=== PATIENT | female | born 1930 | race Caucasian/White ===

== ENCOUNTER 2017-03-29 17:35 | Inpatient (IN) | payer MEDICAID ==
[~2017-03-29] VITALS: Ht 149.9 cm; Wt 66.0 kg
[2017-03-29 21:12] LABS: BASOPHIL % 0.5 % (0-2); PLATELET COUNT 346 x10^3mcL (130-400); RED CELL DISTRIBUTION WIDTH 13.9 % (11.5-14.5)
[2017-03-29 21:18] LABS: CALCIUM 9.2 mg/dL (8.5-10.1); CARBON DIOXIDE 26.6 mmol/L (21-32); CHLORIDE SERUM 101 mmol/L (98-107); CREATININE SERUM 0.8 mg/dL (0.6-1.0); GLUCOSE SERUM 130 mg/dL (74-106); POTASSIUM SERUM 3.4 mmol/L (3.5-5.1); SODIUM SERUM 139 mmol/L (136-145)
[2017-03-29 21:22] LABS: ALBUMIN 3.5 g/dL (3.4-5.0); ALKALINE PHOSPHATASE 55 U/L (46-116); ALT/SGPT 20 U/L (14-59); AMYLASE 42 U/L (25-115); AST/SGOT 18 U/L (15-37); BILIRUBIN TOTAL 0.5 mg/dL (0.20-1.00); LIPASE 193 IU/L (73-393); TOTAL PROTEIN, SERUM 7.5 g/dL (6.4-8.2)
[2017-03-29 22:51] LABS: microscopic required? YES; urine erythrocyte NEGATIVE (NEGATIVE)
[2017-03-30 00:56] VITALS: BP 147/66
[2017-03-30 03:10] LABS: T3 TOTAL 1.19 ng/mL
[2017-03-30 03:16] LABS: CHOLESTEROL/HDL RATIO 2.4; FREE T4 1.2 ng/dL (0.76-1.46); FREE THYROXINE INDEX 4.1 ug/dL (1.4-4.5); T4(THYROXINE) 10.5 ug/dL (4.7-13.3)
[2017-03-30 05:57] VITALS: BP 117/51
[2017-03-30 08:08] LABS: BASOPHIL % 1.1 % (0-2); PLATELET COUNT 354 x10^3mcL (130-400)
[2017-03-30 08:31] LABS: CALCIUM 8.8 mg/dL (8.5-10.1); CARBON DIOXIDE 26.1 mmol/L (21-32); CHLORIDE SERUM 107 mmol/L (98-107); CREATININE SERUM 0.7 mg/dL (0.6-1.0); GLUCOSE SERUM 135 mg/dL (74-106); MAGNESIUM 1.9 mg/dL (1.8-2.4); PHOSPHOROUS 3.2 mg/dL (2.5-4.9); POTASSIUM SERUM 3.5 mmol/L (3.5-5.1); SODIUM SERUM 142 mmol/L (136-145)
[2017-03-30 09:58] VITALS: BP 157/80
[2017-03-30 14:00] VITALS: BP 121/50
[2017-03-30 17:40] VITALS: BP 125/60
[2017-03-30 22:34] VITALS: BP 127/62
[2017-03-31 06:52] VITALS: BP 118/60
[2017-03-31 06:58] LABS: BASOPHIL % 1.1 % (0-2); PLATELET COUNT 315 x10^3mcL (130-400); RED CELL DISTRIBUTION WIDTH 13.9 % (11.5-14.5)
[2017-03-31 07:05] LABS: CALCIUM 8.4 mg/dL (8.5-10.1); CARBON DIOXIDE 24.4 mmol/L (21-32); CHLORIDE SERUM 106 mmol/L (98-107); CREATININE SERUM 0.6 mg/dL (0.6-1.0); GLUCOSE SERUM 92 mg/dL (74-106); MAGNESIUM 1.9 mg/dL (1.8-2.4); POTASSIUM SERUM 3.1 mmol/L (3.5-5.1); SODIUM SERUM 140 mmol/L (136-145)
[2017-03-31 07:50] VITALS: BP 138/65
[2017-03-31 09:47] VITALS: BP 137/57
[2017-03-31 12:35] VITALS: BP 132/74
[2017-03-31 14:24] LABS: BILIRUBIN DIRECT 0.09 mg/dL (0.0-0.2); BILIRUBIN TOTAL 0.3 mg/dL (0.20-1.00)
[2017-03-31 14:31] LABS: ALBUMIN 3.1 g/dL (3.4-5.0); TOTAL PROTEIN, SERUM 6.1 g/dL (6.4-8.2)
[2017-03-31 17:19] VITALS: BP 133/56
[2017-03-31 21:02] VITALS: BP 109/67
[2017-04-01 05:23] VITALS: BP 131/56
[2017-04-01 06:08] LABS: BASOPHIL % 0.8 % (0-2); PLATELET COUNT 311 x10^3mcL (130-400); RED CELL DISTRIBUTION WIDTH 13.9 % (11.5-14.5)
[2017-04-01 06:22] LABS: CALCIUM 8.2 mg/dL (8.5-10.1); CARBON DIOXIDE 23.3 mmol/L (21-32); CHLORIDE SERUM 106 mmol/L (98-107); CREATININE SERUM 0.6 mg/dL (0.6-1.0); GLUCOSE SERUM 93 mg/dL (74-106); LIPASE 128 IU/L (73-393); MAGNESIUM 1.8 mg/dL (1.8-2.4); PHOSPHOROUS 2.8 mg/dL (2.5-4.9); POTASSIUM SERUM 3.7 mmol/L (3.5-5.1); SODIUM SERUM 140 mmol/L (136-145)
[2017-04-01 09:13] VITALS: BP 121/77
[2017-04-01 17:31] VITALS: BP 168/79
[2017-04-01 21:06] VITALS: BP 131/60
[2017-04-02 05:00] VITALS: BP 145/55
[2017-04-02 06:17] LABS: BASOPHIL % 0.6 % (0-2); PLATELET COUNT 323 x10^3mcL (130-400); RED CELL DISTRIBUTION WIDTH 13.5 % (11.5-14.5)
[2017-04-02 06:27] LABS: ALKALINE PHOSPHATASE 53 U/L (46-116); ALT/SGPT 18 U/L (14-59); AST/SGOT 22 U/L (15-37); BILIRUBIN TOTAL 0.4 mg/dL (0.20-1.00); CALCIUM 8.5 mg/dL (8.5-10.1); CARBON DIOXIDE 25.8 mmol/L (21-32); CHLORIDE SERUM 103 mmol/L (98-107); CREATININE SERUM 0.6 mg/dL (0.6-1.0); GLUCOSE SERUM 96 mg/dL (74-106); MAGNESIUM 1.7 mg/dL (1.8-2.4); PHOSPHOROUS 3.3 mg/dL (2.5-4.9); POTASSIUM SERUM 3.1 mmol/L (3.5-5.1); SODIUM SERUM 139 mmol/L (136-145); TOTAL PROTEIN, SERUM 6.8 g/dL (6.4-8.2)
[2017-04-02 09:11] VITALS: BP 139/53
[2017-04-02 17:09] VITALS: BP 127/42
[2017-04-02 21:41] VITALS: BP 114/60
[2017-04-03 06:02] VITALS: BP 133/60
[2017-04-03 06:40] LABS: CALCIUM 8.3 mg/dL (8.5-10.1); CARBON DIOXIDE 24.1 mmol/L (21-32); CHLORIDE SERUM 105 mmol/L (98-107); CREATININE SERUM 0.5 mg/dL (0.6-1.0); GLUCOSE SERUM 102 mg/dL (74-106); POTASSIUM SERUM 3.1 mmol/L (3.5-5.1); SODIUM SERUM 139 mmol/L (136-145)
[2017-04-03 09:10] VITALS: BP 125/48
[2017-04-03 13:00] VITALS: BP 128/70
[2017-04-03 21:01] VITALS: BP 140/59
[2017-04-04 05:22] VITALS: BP 140/60
[2017-04-04 07:26] LABS: BASOPHIL % 0.6 % (0-2); PLATELET COUNT 293 x10^3mcL (130-400); RED CELL DISTRIBUTION WIDTH 13.7 % (11.5-14.5)
[2017-04-04 07:41] LABS: CALCIUM 8.5 mg/dL (8.5-10.1); CARBON DIOXIDE 23.1 mmol/L (21-32); CHLORIDE SERUM 106 mmol/L (98-107); CREATININE SERUM 0.6 mg/dL (0.6-1.0); GLUCOSE SERUM 104 mg/dL (74-106); MAGNESIUM 1.9 mg/dL (1.8-2.4); POTASSIUM SERUM 3.7 mmol/L (3.5-5.1); SODIUM SERUM 139 mmol/L (136-145)
[2017-04-04 17:19] VITALS: BP 141/63
[2017-04-04 21:58] VITALS: BP 113/43
[2017-04-05 05:29] VITALS: BP 128/47
[2017-04-05 06:29] LABS: BASOPHIL % 0.3 % (0-2); PLATELET COUNT 276 x10^3mcL (130-400); RED CELL DISTRIBUTION WIDTH 13.7 % (11.5-14.5)
[2017-04-05 06:34] LABS: ALKALINE PHOSPHATASE 111 U/L (46-116); ALT/SGPT 44 U/L (14-59); AST/SGOT 51 U/L (15-37); BILIRUBIN DIRECT 0.17 mg/dL (0.0-0.2); BILIRUBIN TOTAL 0.5 mg/dL (0.20-1.00); CALCIUM 8.6 mg/dL (8.5-10.1); CARBON DIOXIDE 25.5 mmol/L (21-32); CHLORIDE SERUM 104 mmol/L (98-107); CREATININE SERUM 0.6 mg/dL (0.6-1.0); GLUCOSE SERUM 117 mg/dL (74-106); POTASSIUM SERUM 3.9 mmol/L (3.5-5.1); SODIUM SERUM 138 mmol/L (136-145); TOTAL PROTEIN, SERUM 6.3 g/dL (6.4-8.2)
[2017-04-05 06:35] LABS: ALBUMIN 2.7 g/dL (3.4-5.0)
[2017-04-05 12:26] VITALS: BP 168/64
[2017-04-05 16:22] VITALS: BP 164/70
[2017-04-05 21:21] VITALS: BP 148/50
[2017-04-06 05:46] VITALS: BP 133/61
[2017-04-06 06:17] LABS: BASOPHIL % 0.4 % (0-2); PLATELET COUNT 293 x10^3mcL (130-400); RED CELL DISTRIBUTION WIDTH 13.9 % (11.5-14.5)
[2017-04-06 06:37] LABS: ALKALINE PHOSPHATASE 106 U/L (46-116); ALT/SGPT 39 U/L (14-59); AST/SGOT 42 U/L (15-37); BILIRUBIN DIRECT 0.16 mg/dL (0.0-0.2); BILIRUBIN TOTAL 0.54 mg/dL (0.20-1.00); CALCIUM 8.7 mg/dL (8.5-10.1); CARBON DIOXIDE 28.8 mmol/L (21-32); CHLORIDE SERUM 98 mmol/L (98-107); CREATININE SERUM 0.5 mg/dL (0.6-1.0); GLUCOSE SERUM 105 mg/dL (74-106); SODIUM SERUM 132 mmol/L (136-145); TOTAL PROTEIN, SERUM 6.7 g/dL (6.4-8.2)
[2017-04-06 06:50] LABS: POTASSIUM SERUM 2.7 mmol/L (3.5-5.1)
[2017-04-06 09:00] VITALS: BP 132/60; BP 157/70
[2017-04-06 12:07] VITALS: BP 135/62
[2017-04-06] MEDS ORDERED: APR50 PO (15:05)
[2017-04-06] MEDS ORDERED: DIO160 PO (15:05)
[2017-04-06] MEDS ORDERED: COR20 PO (15:05)
[2017-04-06] MEDS ORDERED: NEU100 PO (15:06)
[2017-04-06] MEDS ORDERED: PRI20 PO (15:08)
[2017-04-06] MEDS ORDERED: OMEPRAZOLE20 M4 PO (15:09)
[2017-04-06] MEDS ORDERED: BIA500 PO (15:10)
[2017-04-06] MEDS ORDERED: AMO500 PO (15:10)
[2017-04-06] MEDS ORDERED: NORCO1 TA2 PO (15:11)
[2017-04-06] MEDS ORDERED: COLACE100 MG PO (15:12)
[2017-04-06 15:21] VITALS: BP 135/62
[2017-04-06 16:15] VITALS: BP 116/68
== END 2017-04-06 18:44 | disposition home or self-care (01) | DRG 263 ==
LOC: ED 17:35 → DU 23:07 → MU 23:07 → DU 03-30 00:45 → MU 03-30 22:14
PROVIDERS: Emergency Medicine; Family Medicine; Internal Medicine Gastroenterology; Surgery; ADMIT Family Medicine
PROC: 0DB68ZX Excision of Stomach, Via Natural or Artificial Opening Endoscopic, Diagnostic (ICD-10-PCS; 2017-03-31 10:00)
PROC: 0DJD8ZZ Inspection of Lower Intestinal Tract, Via Natural or Artificial Opening Endoscopic (ICD-10-PCS; 2017-03-31 10:00)
PROC: 0FT44ZZ Resection of Gallbladder, Percutaneous Endoscopic Approach (ICD-10-PCS; principal; 2017-04-04 09:00)
PROC: 0F798DZ Dilation of Common Bile Duct with Intraluminal Device, Via Natural or Artificial Opening Endoscopic (ICD-10-PCS; 2017-04-05 09:00)
DX: K80.51 Calculus of bile duct without cholangitis or cholecystitis with obstruction (principal); N17.0 Acute kidney failure with tubular necrosis; E43 Unspecified severe protein-calorie malnutrition; A04.8 Other specified bacterial intestinal infections; I42.9 Cardiomyopathy, unspecified; K86.1 Other chronic pancreatitis; E87.1 Hypo-osmolality and hyponatremia; K76.0 Fatty (change of) liver, not elsewhere classified; K86.81 Exocrine pancreatic insufficiency; N39.0 Urinary tract infection, site not specified; K29.70 Gastritis, unspecified, without bleeding; I16.0 Hypertensive urgency; E87.6 Hypokalemia; E83.42 Hypomagnesemia; G25.0 Essential tremor; J44.9 Chronic obstructive pulmonary disease, unspecified; K59.00 Constipation, unspecified; F41.9 Anxiety disorder, unspecified; F43.0 Acute stress reaction; M85.89 Other specified disorders of bone density and structure, multiple sites; D64.9 Anemia, unspecified; Z68.29 Body mass index [BMI] 29.0-29.9, adult
CPT/HCPCS: 43235; 43262; 45378; 83880; 84439; 97110-GP; 97116-GP; 97530-GP; C1769; C1887; C2625; C9113; J0690; J0696; J1170; J1200; J1610; J2250; J2270; J2310; J2405; J2765; J3010; J3480; J3490; J7030; J8597; Q0092; Q9967

== ENCOUNTER 2017-04-11 21:02 | Emergency (ER) | payer MEDICAID ==
[~2017-04-11 21:02] MED LIST: AMO500 PO; APR50 PO; BIA500 PO; COLACE100 MG PO; COR20 PO; DIO160 PO; NEU100 PO; NORCO1 TA2 PO; OMEPRAZOLE20 M4 PO; PRI20 PO
[2017-04-11 21:56] LABS: BASOPHIL % 0.9 % (0-2); PLATELET COUNT 360 x10^3mcL (130-400); RED CELL DISTRIBUTION WIDTH 13.9 % (11.5-14.5)
[2017-04-11 22:07] LABS: CALCIUM 8.9 mg/dL (8.5-10.1); CARBON DIOXIDE 27.1 mmol/L (21-32); CHLORIDE SERUM 102 mmol/L (98-107); CREATININE SERUM 0.5 mg/dL (0.6-1.0); GLUCOSE SERUM 103 mg/dL (74-106); POTASSIUM SERUM 3.2 mmol/L (3.5-5.1); SODIUM SERUM 141 mmol/L (136-145)
[2017-04-11 22:12] LABS: ALKALINE PHOSPHATASE 74 U/L (46-116); ALT/SGPT 18 U/L (14-59); AMYLASE 42 U/L (25-115); AST/SGOT 20 U/L (15-37); BILIRUBIN TOTAL 0.3 mg/dL (0.20-1.00); LIPASE 192 IU/L (73-393); MAGNESIUM 2.1 mg/dL (1.8-2.4)
[2017-04-11 22:13] LABS: ALBUMIN 2.9 g/dL (3.4-5.0)
[2017-04-12 00:36] VITALS: BP 130/59
[2017-04-13] MEDS ORDERED: LANSOPRAZOLE30 M2 PO (18:47)
[2017-04-13] MEDS ORDERED: NOR10 PO (18:48)
== END 2017-04-12 00:36 | disposition home or self-care (01) ==
LOC: ED 21:02
PROVIDERS: Emergency Medicine
DX: K29.70 Gastritis, unspecified, without bleeding (principal); M54.9 Dorsalgia, unspecified; I10 Essential (primary) hypertension; Z79.2 Long term (current) use of antibiotics; Z79.82 Long term (current) use of aspirin; Z79.899 Other long term (current) drug therapy; Z90.49 Acquired absence of other specified parts of digestive tract
CPT/HCPCS: J2270; J2405; J7030

== ENCOUNTER 2017-04-13 17:24 | Inpatient (IN) | payer MEDICAID ==
[~2017-04-13] VITALS: Ht 152.4 cm; Wt 68.0 kg
--- NOTE | 2017-04-13 17:30 | NUR ---
PT W/C TO ED BED 5, PT IN ED WITH C/O DIFFUSE ABD PAIN, [place] [facility] [place] SEEN ON TUESDAY FOR ABD PAIN AND D/C HOME, PT HAS SHANNEN IN PLACE IN 4 DIFFERENT INCISION SITES TO ABDOMEN, ABDOMEN IS SOFT, ACTIVE BOWEL SOUNDS ON AUSCULTATION, DR. IVORY PERFORMED MSE
--- NOTE | 2017-04-13 17:59 | NUR ---
MSE COMPLETED BY DR GUERRERO
--- NOTE | 2017-04-13 18:15 | NUR ---
ASSISTED PT ONTO BEDSIDE COMMODE, PT THEN CLEANED AND HELPED BACK IN BED.
--- NOTE | 2017-04-13 18:24 | NUR ---
PT OFF UNIT VIA WC TO XRAY.
[2017-04-13 18:25] LABS: BASOPHIL % 0.7 % (0-2); PLATELET COUNT 363 x10^3mcL (130-400); RED CELL DISTRIBUTION WIDTH 13.6 % (11.5-14.5)
[2017-04-13 18:35] LABS: CALCIUM 8.4 mg/dL (8.5-10.1); CARBON DIOXIDE 29.6 mmol/L (21-32); CHLORIDE SERUM 103 mmol/L (98-107); CREATININE SERUM 0.6 mg/dL (0.6-1.0); GLUCOSE SERUM 104 mg/dL (74-106); POTASSIUM SERUM 3.5 mmol/L (3.5-5.1); SODIUM SERUM 138 mmol/L (136-145)
[2017-04-13 18:35] LABS: microscopic required? YES; urine erythrocyte NEGATIVE (NEGATIVE)
[2017-04-13 18:39] LABS: ALKALINE PHOSPHATASE 69 U/L (46-116); ALT/SGPT 18 U/L (14-59); AST/SGOT 17 U/L (15-37); CHOLESTEROL 157 mg/dL (<200); HDL CHOLESTEROL 53 mg/dL (40-60); LIPASE 210 IU/L (73-393); TOTAL PROTEIN, SERUM 6.6 g/dL (6.4-8.2); TRIGLYCERIDES 77 mg/dL (<150)
[2017-04-13 18:40] LABS: ALBUMIN 2.8 g/dL (3.4-5.0)
[2017-04-13] MEDS ORDERED: LANSOPRAZOLE30 M2 PO (18:47)
[2017-04-13] MEDS ORDERED: NOR10 PO (18:48)
[2017-04-13 19:03] LABS: FREE T4 1.3 ng/dL (0.76-1.46); FREE THYROXINE INDEX 3.7 ug/dL (1.4-4.5)
--- NOTE | 2017-04-13 19:11 | NUR ---
REPORT GIVEN TO BRITTANI Hawkins TO ASSUME CARE OF PT.
--- NOTE | 2017-04-13 19:35 | NUR ---
PT MEDICATED PER ORER. PLEASE SEE EMAR.
[2017-04-13 19:39] LABS: T3 TOTAL 1.18 ng/mL
--- NOTE | 2017-04-13 19:46 | NUR ---
MRSA SWAB OBTAINED AND SENT TO LAB
--- NOTE | 2017-04-13 20:09 | NUR ---
REPORT CALLED TO KRISTINA MERCEDES TO ASSUME CARE OF PT ON TELE.
--- NOTE | 2017-04-13 20:21 | NUR ---
PT TRANSFERRED TO TELE
[2017-04-13 20:36] VITALS: BP 130/62
--- NOTE | 2017-04-13 20:44 | NUR ---
REC'D AOX4, SPEECH CLEAR. DAUGHTER AT THE BEDSIDE. ON RA, NO SOB NOTED. ATTACHED TELE 12. IV SITE WNL. C/O LUNDBERG AND ABD PAIN. NOTED 4X SHANNEN TO ABD, CDI. ORIENTED TO ROOM AND SURROUNDINGS. CALL LIGHT WITHIN REACH, PROVIDED REPORT TO KRISTINA MERCEDES FOR CONTINUITY OF CARE.
--- NOTE | 2017-04-14 05:13 | NUR ---
PT SLEPT COMFORTABLY THROUGH OUT THE NIGHT. WAS IN NO ACUTE DISTRESS OR DISCOMFORT. SAFETY MEASURES WERE ENSURED. CALL LIGHT WITHIN REACH.
[2017-04-14 05:54] VITALS: BP 101/45
[2017-04-14 05:58] LABS: BASOPHIL % 0.9 % (0-2); PLATELET COUNT 334 x10^3mcL (130-400); RED CELL DISTRIBUTION WIDTH 13.9 % (11.5-14.5)
[2017-04-14 06:11] LABS: CALCIUM 8.1 mg/dL (8.5-10.1); CARBON DIOXIDE 25.4 mmol/L (21-32); CHLORIDE SERUM 107 mmol/L (98-107); CREATININE SERUM 0.6 mg/dL (0.6-1.0); GLUCOSE SERUM 97 mg/dL (74-106); MAGNESIUM 2.2 mg/dL (1.8-2.4); PHOSPHOROUS 3.6 mg/dL (2.5-4.9); POTASSIUM SERUM 3.6 mmol/L (3.5-5.1); SODIUM SERUM 141 mmol/L (136-145)
--- NOTE | 2017-04-14 07:10 | NUR ---
PT IN BED. AWAKE. ABLE TO LET NEEDS KNOWN. ON 2LNC EFFORTLESS BREATHING. IV INFUSING WELL TO RIGHT WRIST #20 NS AT 50ML/HR. BED IN LOWEST POSITION, CALL LIGHT WITHIN REACH.
[2017-04-14 10:42] VITALS: BP 116/52
--- NOTE | 2017-04-14 11:32 | NUR ---
US ABDOMEN DONE. DIET ORDERED. PT EATING NOW. PT STATES FEELING MUCH BETTER AFTER INGESTION OF FOOD. NO ABDOMINAL DISCOMFORT REPORTED. WILL CONTINUE TO MONITOR.
--- NOTE | 2017-04-14 12:55 | NUR ---
PASSED NOON MEDS, PT TOLERATED WELL. CALL LIGHT WITHIN REACH. PT VOICING WISHES TO EAT. STATES HUNGER.
[2017-04-14 13:49] VITALS: BP 112/62
[2017-04-14] MEDS ORDERED: NITROFURANTOIN100 MG PO (16:23)
[2017-04-14 16:42] VITALS: BP 117/51
--- NOTE | 2017-04-14 18:55 | NUR ---
DISCHARGE INSTRUCTIONS GIVEN TO PT AND DAUGHTER. BOTH VERBALIZED UNDERSTANDING FOR FOLLOW UP APPOINTMENTS. IV DC'D PT TOLERATED WELL, CATHETER INTACT, NO PHLEBITIS. TELE BOX REMOVED. PT TRANSPORTED SAFELY OUT OF UNIT VIA WHEELCHAIR.
--- NOTE | 2017-04-14 19:15 | NUR ---
PRESCRIPTION WAS LEFT BEHIND, CALL DRUM SEALER DAUGHTER CHAO HINOJOSA. LEFT VOICEMAIL. PRESCRIPTION AT NURSES STATION.
--- NOTE | 2017-04-14 19:29 | NUR ---
SPOKE TO DAUGHTER (CHAO). DAUGHTER TO TRAFFIC CONTROLLER CABLE PRESCRIPTIONS FROM NURSES STATION.
== END 2017-04-14 19:05 | disposition home or self-care (01) | DRG 241 ==
LOC: ED 17:24 → DU 19:41
PROVIDERS: Family Medicine; Specialist; ADMIT Family Medicine
DX: K29.00 Acute gastritis without bleeding (principal); E43 Unspecified severe protein-calorie malnutrition; A04.8 Other specified bacterial intestinal infections; I42.0 Dilated cardiomyopathy; K76.0 Fatty (change of) liver, not elsewhere classified; K86.1 Other chronic pancreatitis; N39.0 Urinary tract infection, site not specified; J44.9 Chronic obstructive pulmonary disease, unspecified; G25.0 Essential tremor; M85.89 Other specified disorders of bone density and structure, multiple sites; E01.0 Iodine-deficiency related diffuse (endemic) goiter; I10 Essential (primary) hypertension; K86.81 Exocrine pancreatic insufficiency; Z68.29 Body mass index [BMI] 29.0-29.9, adult
CPT/HCPCS: 36600; 83880; 84439; 94150; C9113; J0696; J1885; J2405; J3010; J7030; Q0092

== ENCOUNTER 2017-05-02 16:15 | Emergency (ER) | payer MEDICAID ==
[~2017-05-02 16:15] MED LIST changes: +LANSOPRAZOLE30 M2 PO; +NITROFURANTOIN100 MG PO; +NOR10 PO
[2017-05-02 18:27] LABS: BASOPHIL % 0.6 % (0-2); PLATELET COUNT 321 x10^3mcL (130-400); RED CELL DISTRIBUTION WIDTH 13.7 % (11.5-14.5)
[2017-05-02 18:31] LABS: CALCIUM 8.8 mg/dL (8.5-10.1); CARBON DIOXIDE 24.1 mmol/L (21-32); CHLORIDE SERUM 103 mmol/L (98-107); CREATININE SERUM 0.6 mg/dL (0.6-1.0); GLUCOSE SERUM 104 mg/dL (74-106); POTASSIUM SERUM 3.6 mmol/L (3.5-5.1); SODIUM SERUM 138 mmol/L (136-145)
[2017-05-02 18:36] LABS: ALKALINE PHOSPHATASE 64 U/L (46-116); ALT/SGPT 18 U/L (14-59); AMYLASE 40 U/L (25-115); AST/SGOT 19 U/L (15-37); BILIRUBIN TOTAL 0.25 mg/dL (0.20-1.00); LIPASE 156 IU/L (73-393); TOTAL PROTEIN, SERUM 7.2 g/dL (6.4-8.2)
[2017-05-02 18:37] LABS: ALBUMIN 3.2 g/dL (3.4-5.0)
[2017-05-02 19:44] VITALS: BP 121/75
== END 2017-05-02 19:44 | disposition home or self-care (01) ==
LOC: ED 16:15
PROVIDERS: Emergency Medicine
DX: R10.13 Epigastric pain (principal); Z79.899 Other long term (current) drug therapy
CPT/HCPCS: 36415; 83880; J1885

== ENCOUNTER 2017-05-05 02:22 | Emergency (ER) | payer MEDICAID ==
[2017-05-05 03:05] LABS: BASOPHIL % 1.3 % (0-2); PLATELET COUNT 331 x10^3mcL (130-400); RED CELL DISTRIBUTION WIDTH 12.6 % (11.5-14.5)
[2017-05-05 03:25] LABS: CALCIUM 9.1 mg/dL (8.5-10.1); CARBON DIOXIDE 23.3 mmol/L (21-32); CHLORIDE SERUM 103 mmol/L (98-107); CREATININE SERUM 0.7 mg/dL (0.6-1.0); GLUCOSE SERUM 131 mg/dL (74-106); POTASSIUM SERUM 3.5 mmol/L (3.5-5.1); SODIUM SERUM 141 mmol/L (136-145)
[2017-05-05 03:30] LABS: ALKALINE PHOSPHATASE 183 U/L (46-116); ALT/SGPT 123 U/L (14-59); AST/SGOT 263 U/L (15-37); BILIRUBIN TOTAL 0.72 mg/dL (0.20-1.00); LIPASE 143 IU/L (73-393); TOTAL PROTEIN, SERUM 7.3 g/dL (6.4-8.2)
[2017-05-05 04:05] LABS: ALBUMIN 3.2 g/dL (3.4-5.0)
[2017-05-05 06:10] VITALS: BP 131/57
== END 2017-05-05 06:10 | disposition home or self-care (01) ==
LOC: ED 02:22
PROVIDERS: Emergency Medicine
DX: R10.84 Generalized abdominal pain (principal); I10 Essential (primary) hypertension; R74.0 Nonspecific elevation of levels of transaminase and lactic acid dehydrogenase [LDH]
CPT/HCPCS: J2270; J2405; J7030; Q0092; Q9967

== ENCOUNTER 2017-05-10 16:15 | Emergency (ER) | payer MEDICAID ==
[~2017-05-10] VITALS: Ht 154.9 cm; Wt 61.9 kg
[2017-05-10 17:49] LABS: microscopic required? YES; urine erythrocyte NEGATIVE (NEGATIVE)
[2017-05-10 17:54] LABS: BASOPHIL % 0.5 % (0-2); PLATELET COUNT 341 x10^3mcL (130-400); RED CELL DISTRIBUTION WIDTH 13.5 % (11.5-14.5)
[2017-05-10 17:58] LABS: CARBON DIOXIDE 28.4 mmol/L (21-32); CHLORIDE SERUM 101 mmol/L (98-107); CREATININE SERUM 0.7 mg/dL (0.6-1.0); GLUCOSE SERUM 107 mg/dL (74-106); POTASSIUM SERUM 3.1 mmol/L (3.5-5.1); SODIUM SERUM 139 mmol/L (136-145)
[2017-05-10 18:02] LABS: ALKALINE PHOSPHATASE 214 U/L (46-116); ALT/SGPT 38 U/L (14-59); AMYLASE 28 U/L (25-115); AST/SGOT 27 U/L (15-37); BILIRUBIN TOTAL 0.3 mg/dL (0.20-1.00); HDL CHOLESTEROL 54 mg/dL (40-60); LIPASE 107 IU/L (73-393); TOTAL PROTEIN, SERUM 7.4 g/dL (6.4-8.2)
[2017-05-10 18:05] LABS: ALBUMIN 3.2 g/dL (3.4-5.0); CHOLESTEROL 204 mg/dL (<200)
[2017-05-10 19:35] VITALS: BP 123/70
== END 2017-05-10 18:45 | disposition home or self-care (01) ==
LOC: ED 16:15 → EDBD 16:15 → ED 18:45
PROVIDERS: Emergency Medicine
DX: K59.00 Constipation, unspecified (principal); R68.83 Chills (without fever); F41.9 Anxiety disorder, unspecified; I10 Essential (primary) hypertension; E87.6 Hypokalemia; E46 Unspecified protein-calorie malnutrition; Z90.49 Acquired absence of other specified parts of digestive tract
CPT/HCPCS: 83880; J1885; J2060; J7030

== ENCOUNTER 2017-05-12 20:48 | Inpatient (IN) | payer MEDICAID ==
[~2017-05-12] VITALS: Ht 152.4 cm; Wt 66.0 kg
[2017-05-12 22:16] LABS: BASOPHIL % 0.7 % (0-2); PLATELET COUNT 352 x10^3mcL (130-400); RED CELL DISTRIBUTION WIDTH 13.4 % (11.5-14.5)
[2017-05-12 22:29] LABS: CALCIUM 9.2 mg/dL (8.5-10.1); CARBON DIOXIDE 26.2 mmol/L (21-32); CHLORIDE SERUM 102 mmol/L (98-107); CREATININE SERUM 0.7 mg/dL (0.6-1.0); GLUCOSE SERUM 112 mg/dL (74-106); POTASSIUM SERUM 3.1 mmol/L (3.5-5.1); SODIUM SERUM 139 mmol/L (136-145)
[2017-05-12 22:33] LABS: ALKALINE PHOSPHATASE 170 U/L (46-116); ALT/SGPT 30 U/L (14-59); AST/SGOT 22 U/L (15-37); BILIRUBIN TOTAL 0.4 mg/dL (0.20-1.00); LIPASE 126 IU/L (73-393); TOTAL PROTEIN, SERUM 7.6 g/dL (6.4-8.2)
[2017-05-12 22:36] LABS: ALBUMIN 3.3 g/dL (3.4-5.0)
[2017-05-12 23:42] LABS: UA SPECIFIC GRAVITY 1.015 (1.005-1.035); microscopic required? YES; urine erythrocyte NEGATIVE (NEGATIVE)
[2017-05-13] VITALS (8 sets, daily range): BP systolic 106–143; BP diastolic 50–61; Ht 152.4 cm; Wt 66.0 kg
[2017-05-13] MEDS ORDERED: TRAMADOL HCL50 MG PO (00:07)
[2017-05-13] MEDS ORDERED: EVAC-U-GEN8.6 M1 PO (00:08)
[2017-05-13 01:37] LABS: CHOLESTEROL/HDL RATIO 3.3; MAGNESIUM 2.2 mg/dL (1.8-2.4); PHOSPHOROUS 3.4 mg/dL (2.5-4.9)
[2017-05-13 01:43] LABS: T3 TOTAL 1.16 ng/mL
[2017-05-13 01:51] LABS: FREE T4 1.63 ng/dL (0.76-1.46); FREE THYROXINE INDEX 4.3 ug/dL (1.4-4.5); T4(THYROXINE) 12.3 ug/dL (4.7-13.3)
[2017-05-13 06:13] LABS: CALCIUM 8.3 mg/dL (8.5-10.1); CARBON DIOXIDE 26.5 mmol/L (21-32); CHLORIDE SERUM 104 mmol/L (98-107); CREATININE SERUM 0.6 mg/dL (0.6-1.0); GLUCOSE SERUM 112 mg/dL (74-106); POTASSIUM SERUM 3.5 mmol/L (3.5-5.1); SODIUM SERUM 140 mmol/L (136-145)
[2017-05-14 06:07] VITALS: BP 129/63
[2017-05-14 10:19] VITALS: BP 117/52
[2017-05-14 12:12] VITALS: BP 108/48
[2017-05-14 13:14] VITALS: BP 131/65
[2017-05-14 17:02] VITALS: BP 141/66
[2017-05-14 20:05] VITALS: BP 140/62
[2017-05-15 05:33] VITALS: BP 140/71
[2017-05-15 06:13] LABS: BASOPHIL % 0.7 % (0-2); PLATELET COUNT 325 x10^3mcL (130-400); RED CELL DISTRIBUTION WIDTH 13.6 % (11.5-14.5)
[2017-05-15 07:10] LABS: CALCIUM 8.6 mg/dL (8.5-10.1); CARBON DIOXIDE 25.7 mmol/L (21-32); CHLORIDE SERUM 104 mmol/L (98-107); CREATININE SERUM 0.6 mg/dL (0.6-1.0); GLUCOSE SERUM 92 mg/dL (74-106); MAGNESIUM 2.1 mg/dL (1.8-2.4); PHOSPHOROUS 3.1 mg/dL (2.5-4.9); POTASSIUM SERUM 3.2 mmol/L (3.5-5.1); SODIUM SERUM 139 mmol/L (136-145)
[2017-05-15 08:44] VITALS: BP 134/60
[2017-05-15 10:15] VITALS: BP 134/60
[2017-05-15 15:42] VITALS: BP 142/66
[2017-05-15 17:44] VITALS: BP 144/69
[2017-05-15 20:42] VITALS: BP 135/54
[2017-05-16 05:58] VITALS: BP 146/72
[2017-05-16 07:05] LABS: BASOPHIL % 0.7 % (0-2); PLATELET COUNT 368 x10^3mcL (130-400); RED CELL DISTRIBUTION WIDTH 13.4 % (11.5-14.5)
[2017-05-16 07:48] LABS: CALCIUM 9.1 mg/dL (8.5-10.1); CARBON DIOXIDE 27.2 mmol/L (21-32); CHLORIDE SERUM 103 mmol/L (98-107); CREATININE SERUM 0.6 mg/dL (0.6-1.0); GLUCOSE SERUM 103 mg/dL (74-106); MAGNESIUM 2.1 mg/dL (1.8-2.4); PHOSPHOROUS 3.3 mg/dL (2.5-4.9); POTASSIUM SERUM 3.5 mmol/L (3.5-5.1); SODIUM SERUM 139 mmol/L (136-145)
[2017-05-16] MEDS ORDERED: LAC PO (09:01)
[2017-05-16] MEDS ORDERED: PROTONIX40 MG PO (09:01)
[2017-05-16] MEDS ORDERED: ULT50 PO (09:02)
[2017-05-16] MEDS ORDERED: COLACE100 MG PO (09:03)
[2017-05-16] MEDS ORDERED: NITROFURANTOIN100 MG PO (09:07)
[2017-05-16 09:36] VITALS: BP 110/60
[2017-05-16 09:38] VITALS: BP 110/60
[2017-05-16 14:30] VITALS: BP 147/72
[2017-05-16] MEDS ORDERED: MECLIZINE HCL12.5 MG PO (14:38)
== END 2017-05-16 16:34 | disposition home or self-care (01) | DRG 261 ==
LOC: ED 20:48 → EDBD 20:48 → DU 05-13 00:50
PROVIDERS: Emergency Medicine; Family Medicine; Internal Medicine Gastroenterology; ADMIT Family Medicine
PROC: 0FB Hepatobiliary System and Pancreas, Excision (ICD-10-PCS; principal; 2017-05-13 10:30)
PROC: 0FPB8DZ Removal of Intraluminal Device from Hepatobiliary Duct, Via Natural or Artificial Opening Endoscopic (ICD-10-PCS; 2017-05-13 10:30)
PROC: 0F798ZZ Dilation of Common Bile Duct, Via Natural or Artificial Opening Endoscopic (ICD-10-PCS; 2017-05-13 10:30)
PROC: 0FC98ZZ Extirpation of Matter from Common Bile Duct, Via Natural or Artificial Opening Endoscopic (ICD-10-PCS; 2017-05-13 10:30)
DX: K91.86 Retained cholelithiasis following cholecystectomy (principal); E44.0 Moderate protein-calorie malnutrition; I42.0 Dilated cardiomyopathy; K76.0 Fatty (change of) liver, not elsewhere classified; N39.0 Urinary tract infection, site not specified; E87.6 Hypokalemia; I10 Essential (primary) hypertension; G25.0 Essential tremor; E01.0 Iodine-deficiency related diffuse (endemic) goiter; J44.9 Chronic obstructive pulmonary disease, unspecified; M85.80 Other specified disorders of bone density and structure, unspecified site; Z68.28 Body mass index [BMI] 28.0-28.9, adult
CPT/HCPCS: 43260; 83880; 84439; C1769; C9113; J0696; J1610; J2175; J2250; J2270; J2405; J2704; J3010; J3480; J7030; J7120; J8597; Q0092; Q9967

== ENCOUNTER 2017-05-19 15:43 | Emergency (ER) | payer MEDICAID ==
[~2017-05-19] VITALS: Ht 152.4 cm; Wt 60.4 kg
[~2017-05-19 15:43] MED LIST changes: +EVAC-U-GEN8.6 M1 PO; +LAC PO; +MECLIZINE HCL12.5 MG PO; +PROTONIX40 MG PO; +TRAMADOL HCL50 MG PO; +ULT50 PO
[2017-05-19 18:13] LABS: BASOPHIL % 1.1 % (0-2); PLATELET COUNT 397 x10^3mcL (130-400); RED CELL DISTRIBUTION WIDTH 13.7 % (11.5-14.5)
[2017-05-19 18:19] LABS: CALCIUM 9.4 mg/dL (8.5-10.1); CARBON DIOXIDE 27.1 mmol/L (21-32); CHLORIDE SERUM 102 mmol/L (98-107); CREATININE SERUM 0.7 mg/dL (0.6-1.0); GLUCOSE SERUM 107 mg/dL (74-106); POTASSIUM SERUM 3.2 mmol/L (3.5-5.1); SODIUM SERUM 139 mmol/L (136-145)
[2017-05-19 18:24] LABS: ALBUMIN 3.6 g/dL (3.4-5.0); ALKALINE PHOSPHATASE 120 U/L (46-116); ALT/SGPT 25 U/L (14-59); AMYLASE 64 U/L (25-115); AST/SGOT 20 U/L (15-37); BILIRUBIN TOTAL 0.4 mg/dL (0.20-1.00); LIPASE 399 IU/L (73-393); TOTAL PROTEIN, SERUM 7.7 g/dL (6.4-8.2)
[2017-05-19 19:38] VITALS: BP 132/73
== END 2017-05-19 19:38 | disposition home or self-care (01) ==
LOC: ED 15:43
PROVIDERS: Emergency Medicine
DX: R10.9 Unspecified abdominal pain (principal)
CPT/HCPCS: 36415; 83880; J1885

== ENCOUNTER 2017-05-20 02:48 | Emergency (ER) | payer MEDICAID ==
[2017-05-20 03:52] LABS: BASOPHIL % 1.3 % (0-2); PLATELET COUNT 375 x10^3mcL (130-400); RED CELL DISTRIBUTION WIDTH 13.1 % (11.5-14.5)
[2017-05-20 03:53] LABS: CALCIUM 8.9 mg/dL (8.5-10.1); CARBON DIOXIDE 25.8 mmol/L (21-32); CHLORIDE SERUM 107 mmol/L (98-107); CREATININE SERUM 0.6 mg/dL (0.6-1.0); GLUCOSE SERUM 111 mg/dL (74-106); POTASSIUM SERUM 3.2 mmol/L (3.5-5.1); SODIUM SERUM 142 mmol/L (136-145)
[2017-05-20 03:53] LABS: UA SPECIFIC GRAVITY 1.015 (1.005-1.035); microscopic required? YES; urine erythrocyte NEGATIVE (NEGATIVE)
[2017-05-20 03:59] LABS: ALKALINE PHOSPHATASE 104 U/L (46-116); ALT/SGPT 24 U/L (14-59); AMYLASE 51 U/L (25-115); AST/SGOT 32 U/L (15-37); BILIRUBIN TOTAL 0.48 mg/dL (0.20-1.00); LIPASE 315 IU/L (73-393)
[2017-05-20 04:07] LABS: ALBUMIN 3.2 g/dL (3.4-5.0)
[2017-05-20 05:57] VITALS: BP 138/69
== END 2017-05-20 05:57 | disposition home or self-care (01) ==
LOC: ED 02:48
PROVIDERS: Emergency Medicine
DX: G89.29 Other chronic pain (principal); R10.11 Right upper quadrant pain; I10 Essential (primary) hypertension
CPT/HCPCS: 36415; J2270

== ENCOUNTER 2017-05-29 14:04 | Emergency (ER) | payer MEDICAID ==
[~2017-05-29] VITALS: Ht 152.4 cm; Wt 60.9 kg
[2017-05-29 16:45] LABS: CALCIUM 9.2 mg/dL (8.5-10.1); CARBON DIOXIDE 26.7 mmol/L (21-32); CHLORIDE SERUM 102 mmol/L (98-107); CREATININE SERUM 0.6 mg/dL (0.6-1.0); GLUCOSE SERUM 113 mg/dL (74-106); POTASSIUM SERUM 3.6 mmol/L (3.5-5.1); SODIUM SERUM 138 mmol/L (136-145)
[2017-05-29 16:48] LABS: BASOPHIL % 0.8 % (0-2); PLATELET COUNT 334 x10^3mcL (130-400)
[2017-05-29 16:53] LABS: ALKALINE PHOSPHATASE 80 U/L (46-116); ALT/SGPT 18 U/L (14-59); AST/SGOT 23 U/L (15-37); BILIRUBIN TOTAL 0.5 mg/dL (0.20-1.00); LIPASE 178 IU/L (73-393); TOTAL PROTEIN, SERUM 7.4 g/dL (6.4-8.2)
[2017-05-29 16:54] LABS: ALBUMIN 3.3 g/dL (3.4-5.0)
[2017-05-29 17:24] LABS: UA SPECIFIC GRAVITY <=1.005 (1.005-1.035); microscopic required? YES; urine erythrocyte NEGATIVE (NEGATIVE)
[2017-05-29 19:24] VITALS: BP 130/67
== END 2017-05-29 19:24 | disposition home or self-care (01) ==
LOC: ED 14:04
PROVIDERS: Emergency Medicine
DX: N39.0 Urinary tract infection, site not specified (principal); I10 Essential (primary) hypertension
CPT/HCPCS: J0696; J2270; J2405; J7030

== ENCOUNTER 2017-05-31 14:14 | Emergency (ER) | payer MEDICAID ==
[2017-05-31 17:09] LABS: BASOPHIL % 0.5 % (0-2); PLATELET COUNT 338 x10^3mcL (130-400); RED CELL DISTRIBUTION WIDTH 14.1 % (11.5-14.5)
[2017-05-31 17:22] LABS: ALKALINE PHOSPHATASE 72 U/L (46-116); ALT/SGPT 17 U/L (14-59); AMYLASE 42 U/L (25-115); AST/SGOT 16 U/L (15-37); CARBON DIOXIDE 24.8 mmol/L (21-32); CHLORIDE SERUM 104 mmol/L (98-107); CREATININE SERUM 0.7 mg/dL (0.6-1.0); GLUCOSE SERUM 106 mg/dL (74-106); LIPASE 246 IU/L (73-393); SODIUM SERUM 141 mmol/L (136-145); TOTAL PROTEIN, SERUM 7.2 g/dL (6.4-8.2)
[2017-05-31 17:25] LABS: ALBUMIN 3.2 g/dL (3.4-5.0)
[2017-05-31 17:26] LABS: POTASSIUM SERUM 2.8 mmol/L (3.5-5.1)
[2017-05-31 20:03] VITALS: BP 150/89
== END 2017-05-31 20:04 | disposition home or self-care (01) ==
LOC: ED 14:14
PROVIDERS: Emergency Medicine
DX: R10.9 Unspecified abdominal pain (principal); I10 Essential (primary) hypertension; Z79.899 Other long term (current) drug therapy
CPT/HCPCS: 36415; 83880; J1885; J3010